=== PATIENT | male | born 1945 | race Caucasian/White ===

== ENCOUNTER → 2023-08-17 09:46 | Outpatient (REF) | payer MEDICARE, OTHER, SELFPAY | LOC: RAD 09:46 | PROVIDERS: ATTENDING PHYSICIAN Surgery Vascular Surgery; FAMILY PHYSICIAN Family Medicine | DX: I73.9 Peripheral vascular disease, unspecified (principal) | CPT/HCPCS: 93922; 93925 ==

== ENCOUNTER → 2023-08-31 08:35 | Outpatient (REF) | payer MEDICARE, OTHER, SELFPAY | LOC: RAD 08:35 | PROVIDERS: ATTENDING PHYSICIAN Internal Medicine Cardiovascular Disease | DX: I71.9 Aortic aneurysm of unspecified site, without rupture (principal); I65.29 Occlusion and stenosis of unspecified carotid artery; I65.23 Occlusion and stenosis of bilateral carotid arteries | CPT/HCPCS: 93880 ==

== ENCOUNTER → 2023-09-05 14:30 | Outpatient (REF) | payer MEDICARE, OTHER, SELFPAY | LOC: HWRAD 14:30 | PROVIDERS: ATTENDING PHYSICIAN Family Medicine | DX: G60.3 Idiopathic progressive neuropathy (principal) | CPT/HCPCS: 73620 ==

== ENCOUNTER → 2023-09-16 09:31 | Outpatient (REF) | payer MEDICARE, OTHER, SELFPAY | LOC: MRI 3T 09:31 | PROVIDERS: ATTENDING PHYSICIAN Family Medicine | DX: G60.3 Idiopathic progressive neuropathy (principal) | CPT/HCPCS: 72148 ==

== ENCOUNTER → 2024-02-29 06:42 | Day surgery (SDC) | payer MEDICARE, OTHER, SELFPAY | LOC: GI 06:42 | PROVIDERS: ATTENDING PHYSICIAN Internal Medicine Gastroenterology | DX: K22.70 Barrett's esophagus without dysplasia (principal); K44.9 Diaphragmatic hernia without obstruction or gangrene | CPT/HCPCS: 43239; 88305 ==

== ENCOUNTER → 2024-03-05 10:30 | Outpatient (REF) | payer MEDICARE, OTHER, SELFPAY | LOC: DHVS 10:30 | PROVIDERS: ATTENDING PHYSICIAN Registered Nurse; FAMILY PHYSICIAN Family Medicine | DX: I73.9 Peripheral vascular disease, unspecified (principal); I65.29 Occlusion and stenosis of unspecified carotid artery; I65.23 Occlusion and stenosis of bilateral carotid arteries | CPT/HCPCS: 93880; 93922; 93925 ==

== ENCOUNTER → 2024-04-26 10:27 | Outpatient (REF) | payer MEDICARE, OTHER, SELFPAY ==
[2024-04-26 14:12] LABS: Blood Urea Nitrogen 13 mg/dl (9-20)
== END ==
LOC: HWLAB 10:27
PROVIDERS: ATTENDING PHYSICIAN Internal Medicine Gastroenterology; FAMILY PHYSICIAN Family Medicine
DX: R10.32 Left lower quadrant pain (principal)
CPT/HCPCS: 36415; 82565; 84520

== ENCOUNTER 2024-04-28 10:04 | Inpatient (IN) | payer MEDICARE, OTHER, SELFPAY ==
[2024-04-28] VITALS (11 sets, daily range): BP systolic 107–150; BP diastolic 53–83; O2SAT 96; BMI 25.0
[2024-04-28 05:31] LABS: % Basophils 0.4 % (0-2); % Immature Granulocytes 0.8 % (0-0.5); % Lymphocytes 3.8 % (20.5-51.1); Absolute Lymphocytes 0.2 10^3/uL (1.2-3.4); Absolute Monocytes 0.3 10^3/uL (0.1-0.6); Absolute Neutrophils 4.5 10^3/uL (1.4-6.5); Hematocrit 36.5 % (39.0-52.0); Hemoglobin 13.1 g/dL (13.0-18.0); Mean Corp Hgb Conc. 35.9 g/dL (33.0-37.0); Mean Corpuscular Hgb 31.3 pg (27.0-31.0); Mean Corpuscular Volume 87.3 fL (80.0-94.0); Mean Platelet Volume 9.4 fL (7.4-10.4); Nucleated Red Blood Cells % 0 % (-); Platelet Count 119 10^3/uL (130-400); Red Blood Cell Count 4.18 10^6/uL (4.70-6.10); Red Cell Dist. Width 12.5 % (11.5-14.5)
[2024-04-28 05:44] LABS: ALT (SGPT) 47 U/L (0-50); AST (SGOT) 51 U/L (17-59); Albumin 3.6 g/dl (3.5-5.0); Alkaline Phosphatase 57 U/L (38-126); Blood Urea Nitrogen 10 mg/dl (9-20); Calcium 8.5 mg/dl (8.4-10.2); Carbon Dioxide 19 mmol/L (22-30); Chloride 99 mmol/L (98-107); Estimated Creatinine Clearance 66 ml/min; Glucose 182 mg/dl (70-99); Lipase 57 U/L (23-300); Potassium 3.7 mmol/L (3.5-5.1); Sodium 132 mmol/L (135-145); Total Bilirubin 0.6 mg/dl (0.2-1.3); Total Protein 6.2 g/dl (6.3-8.2); eGFR > 60.00
--- NOTE | 2024-04-28 06:21 | ED.GENMED ---
History of Present Illness
General
Chief Complaint: Fainting/Passed Out
Source: patient and spouse
Exam Limitations: none
Time Seen by Provider: 04/28/24 05:38
Nursing documentation reviewed up to this point in time: agreed with
History of Present Illness
History of Present Illness:
79-year-old male with a past medical history of hypertension, hyperlipidemia, prior diverticulitis who presents to the emergency room accompanied by his via EMS for evaluation of abdominal pain and fatigue. Patient reports that over the past 2
weeks he has been having a flareup of his diverticulitis; he says that he was started on antibiotics for this a week ago (ciprofloxacin and metronidazole). He says that unfortunately the metronidazole was making him ill and so he has only been
taking the ciprofloxacin and has had 6 days worth of this antibiotic. Despite this he notes that he has had continued pain he says across the lower abdomen. He has had increasing generalized fatigue and weakness. He says that this morning he was
on the toilet and was too weak to even sit up straight on the toilet and fell off of the toilet. He is not sure whether he hit his head. Triage note mention that he syncopized but patient says that he did not feel dizzy and stresses that he
did not lose consciousness. She was too weak to help a mop and called EMS to bring her to the hospital to be assessed. Aside from feeling very weak and having continued abdominal pain patient also report significant nausea. He had 1 episode of
vomiting this morning. He denies any diarrhea reports mild constipation. Denies any urinary symptoms. He denies any other complaints.
Past History
Past History
ED Past Medical History: CAD
ED Past Surgical History: Cardiac; Negative Appendectomy
Social History
Tobacco: Non-smoker
Alcohol: None
Drug: None
Personal:
Living: with family
Employment: Retired
Family History
Family History: Other
Review of Systems
Review of Systems
All Other Systems: ROS reviewed and negative except as documented in HPI and ROS
Constitutional: Reports fatigue; Denies fever or chills
EENT: Denies sore throat
Respiratory: Denies trouble breathing
Cardiac: Denies chest pain or syncope
ABD/GI: Reports abdominal pain, nausea, vomiting, constipated and anorexia; Denies diarrhea
: Denies dysuria, frequency or flank pain
Musculoskeletal: Denies neck pain or back pain
Neurological: Denies dizzy or headache
Phy Exam
Physical Exam
Physical Exam:
General: Awake, alert, oriented x3; laying in bed holding emesis bag
Head: Normocephalic, atraumatic
Eyes: Conjunctiva normal, sclera anicteric
Throat: Airway intact, handling secretions
Neck: Trachea midline, supple without meningismus
Lungs: Clear to auscultation bilaterally, no wheezing, rales, rhonchi
Heart: Regular rate and rhythm, no murmurs, gallops, or rubs
Abd: Soft, non distended, tender to palpation across the lower abdomen worst in the left lower quadrant with no peritoneal signs or masses appreciated
Neuro: No gross deficits
Skin: Minor abrasion left forearm
Extremities: Minor form abrasion but no other signs of trauma to the extremities, no tenderness in the extremities, no edema in extremities, equal pulses in all extremities
Scores
Heart Failure Risk
Heart Failure Risk Score: Not Applicable
Heart Score for Chest Pain Patients
STEMI patient?: Not applicable
Withdrawal Assessment of Alcohol
Withdrawal Assessment Completed?: Not applicable
Course
Orders/Labs/Results
Orders:
Orders
04/28/24 04:58
EKG [Electrocardiogram (*1)] Urgent
Reason for Study: Syncope
EKG- Treatment ONCE
IV Insert/Care/Rem.- Treatment PRN
04/28/24 05:05
Complete Blood Count/With Diff Urgent
Comprehensive Metabolic Panel Urgent
Lipase Urgent
04/28/24 05:41
CT Abd/pelvis W Iv Cont Urgent
Comment:
Reason For Exam: diverticulitis with worsening abd pain and tendern
CT Head W/o Iv Contrast Urgent
Comment:
Reason For Exam: syncope and collapse, headstrike
04/28/24 07:38
Urinalysis Reflex To Culture Urgent
Abnormal Lab Results
04/28/24
05:05
RBC 4.18 L 10^6/uL
(4.70-6.10)
Hct 36.5 L %
(39.0-52.0)
MCH 31.3 H pg
(27.0-31.0)
Plt Count 119 L 10^3/uL
(130-400)
Absolute Lymphs (auto) 0.2 L 10^3/uL
(1.2-3.4)
Immature Gran % 0.8 H %
(0-0.5)
Neutrophils % 90.0 H %
(42.2-75.2)
Lymphocytes % 3.8 L %
(20.5-51.1)
Sodium 132 L mmol/L
(135-145)
Carbon Dioxide 19 L mmol/L
(22-30)
Glucose 182 H mg/dl
(70-99)
Total Protein 6.2 L g/dl
(6.3-8.2)
04/28/24 05:05
04/28/24 05:05
Vital Signs
Initial and Last Documented VS:
Initial Vital Signs
Temp Pulse Resp BP Pulse Ox
36.6 C 81 28 134/67 94
04/28/24 04:58 04/28/24 04:58 04/28/24 04:58 04/28/24 04:58 04/28/24 04:58
Last Documented Vital Signs
Temp Pulse Resp BP Pulse Ox
36.6 C 76 23 111/62 93
04/28/24 04:58 04/28/24 06:33 04/28/24 06:33 04/28/24 06:33 04/28/24 06:33
MDM/Problems Addressed
Differential Diagnosis Includes:
Diverticulitis, colitis, UTI
MDM/Problems Addressed:
79-year-old male presents to the emergency room for continued lower abdominal pain and increasing generalized weakness over the past week; was diagnosed with flare of his chronic diverticulitis and started on antibiotics last week as above but has
only been taking ciprofloxacin (was prescribed Cipro plus Flagyl). Today fell off the toilet due to his severe weakness. Did not pass out, unclear if there was head trauma. Plan to place an IV check labs including a CBC and CMP. Check
urinalysis. Sent for CT head given fall and CT abdomen pelvis. Provide fluids. He received Zofran prehospital. Reassess after the above.
Labs reviewed: CBC unremarkable, CMP shows mild hyponatremia, marginal metabolic acidosis. CT abdomen pelvis shows mild wall thickening in the ascending colon which could be mild colitis. No evidence for acute diverticulitis. Urinalysis is
pending but he has not had any urinary symptoms. Can treat with some Rocephin here for colitis. He is still feeling nauseated will provide additional dose of Zofran. Provide some IV fluid infusion. Wonder if weakness could be related to poor
p.o. intake in the setting of recent abdominal pains versus deconditioning. With continued pain and nausea, dehydration will admit for continued management. Discussed with hospitalist.
Chronic conditions affecting care:
Diverticulitis
*Radiology
Radiology exam reviewed: radiology read reviewed
*Pulse Oximetry
Patient hypoxic: no
*EKG
Interpreted by ED Provider?: Yes
Heart Rate: 69
Rate: normal
Rhythm: sinus
[place]: normal axis
Interval: normal interval
QRS Pattern: right bundle branch block (Incomplete)
Ischemia: non-specific ST changes
*Critical Care Note
Total Time (30-74mins, 75-104mins- exclusive of procedures): Not Applicable
Data Reviewed
Source: patient, records and spouse
Patient Management
Discussion with other providers: Hospitalist (Discussed with hospitalist)
Escalation/DeEscalation of care consider admission/obs:
Admission indicated
ED Attending Note
-
Portions of this chart may have been created with voice recognition software.� Occasional wrong word or��sound alike� substitutions may have occurred due to the inherent limitations of voice recognition software.
Discharge Plan
Departure
Patient Disposition: Admit
Date of Disposition: 04/28/24
Time of Disposition: 07:48
Presentation/result/management discussed w/ accepting MD/DO: Hospitalist
Discharge Problem:
Pre-syncope, Generalized weakness, Abdominal pain, Nausea
Prescriptions:
No Action
trandolapril 2 MG tablet
2 mg PO DAILY
cholecalciferol (vitamin D3) [Vitamin D3] 1,000 UNIT capsule
1,000 unit PO DAILY
oxycodone-acetaminophen 5 MG/325 MG tablet
1 tab PO Q8HPRN PRN (Reason: severe pain)
Patient Comments:
06/05/23 filled on 05/24/23 #90
cilostazol 50 mg Tablet
50 mg PO BID
ibuprofen [Advil] 200 mg Tablet
200 mg PO Q6HPRN PRN (Reason: mild pain)
ezetimibe-simvastatin [Vytorin 10-40] 10-40 mg Tablet
1 tab PO HS
fexofenadine 180 mg Tablet
180 mg PO DAILY
metronidazole 0.75 % Cream
1 applic TOPICAL DAILY
omeprazole 20 mg Tablet,Delayed Release (Dr/Ec)
20 mg PO BID
omega 3-mvo-ykc-fish oil [Fish Oil] 1,000 mg (120 mg-180 mg) Capsule
1 cap PO DAILY
albuterol sulfate 90 mcg/actuation Aerosol Powdr Breath Activated
1 inh INHALATION R Q6HPRN PRN (Reason: sob)
nitroglycerin [Nitrostat] 0.4 mg Tablet, Sublingual
0.4 mg SUBLINGUAL Q5-15M PRN (Reason: chest pain)
aspirin 81 mg Tablet,Chewable
81 mg PO DAILY
Pulmicort Flexhaler 90 mcg/actuation Aerosol Powdr Breath Activated
1 inh INHALATION BID
Patient Comments:
'this is replacing my Flovent and I'll start it tomorrow'
guaifenesin [Mucinex] 600 mg Tablet Extended Release 12hr
600 mg PO Q12H PRN (Reason: congestion)
[facility] 3 billion cell Capsule
1 cap PO DAILY
Referrals:
UNKNOWN - PT NOT,INTERVIEWE [Family Provider] -
Interventions
Interventions:
*Risk Screen - Suicide Last Done: 04/28/24 04:58
*General Assessment Last Done: 04/28/24 04:58
*Neglect/Abuse Screening Last Done: 04/28/24 04:58
ED- Fall Risk Assessment Last Done: 04/28/24 05:11
*ED COVID-19 Vaccine History Last Done: 04/28/24 04:58
ED- Cardiac Assessment Last Done: 04/28/24 05:11
ED- Neurological Assessment Last Done: 04/28/24 05:11
Discharge Date and Time
Print Language: TELUGU
[2024-04-28] MEDS: FLAGYL 500 MG 100 IV ×3 (08:16→23:51)
[2024-04-28] MEDS: NSS 500 IV (08:16)
[2024-04-28] MEDS: ZOFRAN 4 MG IV ×3 (08:16→18:12)
[2024-04-28] MEDS: ROCEPHIN 1000 MG IV (08:16)
[2024-04-28 08:52] LABS: Urine Albumin Trace (Neg - Trace); Urine Bilirubin Negative (Negative); Urine Character Clear (Clear); Urine Color Yellow; Urine Glucose Negative (Negative); Urine Ketone 1+ (Negative); Urine Leukocyte Negative (Negative); Urine Nitrite Negative (Negative); Urine Occult Blood Trace (Negative); Urine Urobilinogen 1+ (Neg - 1+); Urine pH 6.5 (5.0-9.0)
[2024-04-28] MEDS: NSS (PRESERVATIVE FREE) 10 ML IV (10:08)
[2024-04-28] MEDS: COMPAZINE 10 MG IV (10:08)
[2024-04-28] MEDS: DILAUDID 0.5 MG IV ×2 (10:08→17:23)
[2024-04-28] MEDS: PROTONIX IV 40 MG IV (10:08)
[2024-04-28 10:27] LABS: Urine Amorphous Seen; Urine Red Blood Cell 0-2 /HPF (0-2); Urine White Cell 0-2 /HPF (0-5)
--- NOTE | 2024-04-28 10:31 | CM ---
CM consult for placement. Chart reviewed. CM introduced self and role. also present at bedside. Patient is here with dizziness. PT consulted. CM explained the possible recommendations PT may give, once patient is assessed. CM gave a list of
SNFs, from medicare.gov, to .
Patient is usually independent. He lives at home with his . They own a multi-level home; but have a 1st floor set up. There are 3 steps to enter into home. Roque usually drives and exercises by walking around the mall. Denied any +SDOHs. Has
an active PCP and pharmacy. Owns a walker at home. will provide transportation once Rudy is discharged.
--- NOTE | 2024-04-28 12:09 | HPS.HSE ---
Family Physician
-
Family Physician: INTERVIEWE UNKNOWN - PT NOT
Chief Complaint
-
Abdominal pain, vomiting, dizziness
History of Present Illness
79-year-old male with a past medical history of CAD status post CABG x 4 in 1999, PAD, hypertension, hyperlipidemia, asthma, interstitial lung disease, and colitis/diverticulitis presents with abdominal pain, nausea, vomiting, and dizziness.
Patient reports that he has been having left lower quadrant abdominal pain for 1-2 weeks, 6 out of 10 in intensity. He was started on ciprofloxacin and Flagyl this week, he has only been able to take the ciprofloxacin for 6 days. He has not been
able to tolerate the Flagyl. He states that today, he started having nausea and vomiting. He was on the toilet, and felt lightheaded/dizzy. He did not lose consciousness. Associated symptoms include weakness. No fever, no diarrhea, no black or
bloody stools. No chest pain, no shortness of breath.
Medical History
Past Medical History
Past Medical History: Reports Other
Additional Past Medical History:
1. Coronary artery disease status post CABG x4, 1999, outside
facility.
2. Peripheral arterial disease, bilateral SFA occlusion on
angiogram July 2022.
3. Carotid artery stenosis, bilateral, unknown degree.
4. Hypertension.
5. Hyperlipidemia.
6. Asthma, mild, persistent.
7. Interstitial lung disease with bronchiectasis.
8. Sarcoid, not active.
9. Pulmonary nodules.
10. Impaired fasting glucose.
11. Colitis/diverticulitis
12. Degenerative disk disease with osteoarthritis.
13. Gastroesophageal reflux disease/Howell's esophagus
14. History of C. diff.
Past Surgical History: Reports Cholecystectomy and Other (CABGx4, neck surgery, lower back surgery)
Social History
Tobacco: Non-smoker
Alcohol: Occasional
Drug: None
Personal:
Living: With Family
Family History
Family History: Not pertinent
Allergies / Home Medications
Allergies reflects when Allergies were last updated in [facility].
Home Medications with original date entered in [facility]
Allergy/Medication List:
Allergies
Allergy/AdvReac Type Severity Reaction Status Date / Time
Penicillins Allergy Unknown Verified 04/28/24 08:21
Home Medications Table - record
�Medication �Instructions �Recorded �Confirmed
trandolapril 2 mg tablet 2 mg PO DAILY 03/21/14 04/28/24
cholecalciferol (vitamin D3) 25 1,000 unit PO DAILY 02/22/17 04/28/24
mcg (1,000 unit) capsule (Vitamin
D3)
cilostazol 50 mg tablet 50 mg PO BID 05/29/23 04/28/24
ezetimibe 10 mg-simvastatin 40 mg 1 tab PO HS 05/29/23 04/28/24
tablet (Vytorin)
ibuprofen 200 mg tablet (Advil) 200 mg PO Q6HPRN PRN mild pain 05/29/23 04/28/24
albuterol sulfate 90 mcg/actuation 1 inh inhalation R Q6HPRN PRN sob 06/05/23 04/28/24
breath activated powder inhaler
fexofenadine 180 mg tablet 180 mg PO DAILY 06/05/23 04/28/24
omega 5-jip-yhm-fish oil 1,000 mg 1 cap PO DAILY 06/05/23 04/28/24
(120 mg-180 mg) capsule (Fish Oil)
omeprazole 20 mg tablet,delayed 20 mg PO BID 06/05/23 04/28/24
release
Lactobacillus rhamnosus-Bifidobac. 1 cap PO DAILY 07/19/23 04/28/24
animalis 3 billion cell capsule
([facility])
aspirin 81 mg chewable tablet 81 mg PO DAILY 07/19/23 04/28/24
budesonide 90 mcg/actuation breath 1 inh inhalation BID 07/19/23 04/28/24
activated powder inhaler
(Pulmicort Flexhaler)
guaifenesin 600 mg tablet, 600 mg PO Q12H PRN congestion 07/19/23 04/28/24
extended release 12 hr (Mucinex)
nitroglycerin 0.4 mg sublingual 0.4 mg sublingual Q5-15M PRN chest 07/19/23 04/28/24
tablet (Nitrostat) pain
Review of Systems
-
A 12 point ROS was completed and negative except as noted: Yes
Physical Exam
Vital Signs
Vital Signs
Temp Pulse Resp BP Pulse Ox
98 F 91 21 116/59 98
04/28/24 04:58 04/28/24 11:00 04/28/24 11:00 04/28/24 11:00 04/28/24 09:19
Physical Exam
General: No Apparent Distress
HEENT: NormoCephalic, Anicteric and Moist mucous membranes
Respiratory: Clear
Cardiac: S1/S2 and Regular Rhythm
GI: Soft, Non Distended, Normal Bowel Sounds and Tender (Tender at the left lower quadrant and suprapubic area)
Musculoskeletal: No Clubbing, No Cyanosis and No Edema
Skin: Warm
Neuro: Awake, Alert and Oriented
Psych: Calm
Laboratory Results
-
04/28/24 05:05
04/28/24 05:05
Laboratory Results
Total Bilirubin 0.6 mg/dl (0.2-1.3) 04/28/24 05:05
AST 51 U/L (17-59) 04/28/24 05:05
ALT 47 U/L (0-50) 04/28/24 05:05
Alkaline Phosphatase 57 U/L (38-126) 04/28/24 05:05
Lipase 57 U/L (23-300) 04/28/24 05:05
Impression/Plan
-
HPI: 79-year-old male with a past medical history of CAD status post CABG x 4 in 1999, PAD, hypertension, hyperlipidemia, asthma, interstitial lung disease, and colitis/diverticulitis presents with abdominal pain, nausea, vomiting, and dizziness.
Patient reports that he has been having left lower quadrant abdominal pain for 1-2 weeks, 6 out of 10 in intensity. He was started on ciprofloxacin and Flagyl this week, he has only been able to take the ciprofloxacin for 6 days. He has not been
able to tolerate the Flagyl. He states that today, he started having nausea and vomiting. He was on the toilet, and felt lightheaded/dizzy. He did not lose consciousness. Associated symptoms include weakness. No fever, no diarrhea, no black or
bloody stools. No chest pain, no shortness of breath.
#Acute colitis/diverticulitis
Patient has taken 6 days of ciprofloxacin, unable to tolerate Flagyl
CT of the abdomen and pelvis shows colonic diverticulosis, and mild wall thickening along the ascending/proximal transverse colon
Treat with IV Rocephin/Flagyl, trial of clear liquid diet
IV fluids, antiemetics as needed
Consider GI consult if no improvement
#Dizziness
Triage note stated there was syncope, collapse, head strike
Patient and states that patient fell off the toilet, unclear if patient hit his head
Patient and denies loss of consciousness
Head CT shows small hypodensity within the right globus pallidus, possibly demineralization
IV fluids, check orthostatics
#Asthma
#Interstitial lung disease with bronchiectasis
Continue bronchodilators, antihistamine
#Coronary artery disease
#History of CABG
Continue aspirin, statin
#Carotid artery stenosis
#Peripheral artery disease
Continue aspirin, cilostazol, statin
#Hyperlipidemia
Continue statin
#Hypertension
Continue ANDREINA inhibitor with hold parameters
#Hyponatremia
Monitor
#GERD
#Howell's esophagus
Continue PPI twice daily
#Chronic back pain
#Degenerative disc disease
Tylenol, oxycodone as needed
DVT prophylaxis�subcu Lovenox
Full code
Total time spent to see the patient on the floor, examine the patient, review data and lab results, discuss treatment plan with patient, nursing staff around 78 minutes.
[2024-04-28] MEDS: NSS IV (13:06)
[2024-04-28] MEDS: LR 1000 IV (14:22)
[2024-04-28] MEDS: LOVENOX 40 MG SC (17:20)
[2024-04-28] MEDS: PULMICORT 0.5 MG INH (20:13)
[2024-04-28] MEDS: DUONEB 3 ML INH (20:13)
[2024-04-28] MEDS: LIPITOR 20 MG PO (21:32)
[2024-04-28] MEDS: ZETIA 10 MG PO (21:32)
[2024-04-28] MEDS: ROXICODONE 5 MG PO (21:32)
[2024-04-28] MEDS: PLETAL 50 MG PO (21:32)
[2024-04-28] MEDS: PROTONIX 40 MG PO (21:33)
[2024-04-29] MEDS: ZOFRAN 4 MG IV (03:38)
[2024-04-29] MEDS: LR 1000 IV ×2 (03:39→21:25)
--- NOTE | 2024-04-29 06:33 | W.PN.HOSP.TC ---
Today's Communication/Plan
-
repeat CT head in AM
cont clear liquid diet
lidocaine patches lower back pain
pain control antiemetics as needed
Assessment / Plan
Assessment / Plan
Physical Exam
General: No Apparent Distress
HEENT: NormoCephalic, Anicteric and Moist mucous membranes
Respiratory: Clear
Cardiac: S1/S2 and Regular Rhythm
GI: Soft, Non Distended, Normal Bowel Sounds and Tender (Tender at the left lower quadrant and suprapubic area)
Musculoskeletal: No Clubbing, No Cyanosis and No Edema
Skin: Warm
Neuro: Awake, Alert and Oriented
Psych: Calm
HPI: 79-year-old male with a past medical history of CAD status post CABG x 4 in 1999, PAD, hypertension, hyperlipidemia, asthma, interstitial lung disease, and colitis/diverticulitis presents with abdominal pain, nausea, vomiting, and dizziness.
Patient reports that he has been having left lower quadrant abdominal pain for 1-2 weeks, 6 out of 10 in intensity. He was started on ciprofloxacin and Flagyl this week, he has only been able to take the ciprofloxacin for 6 days. He has not been
able to tolerate the Flagyl. He states that today, he started having nausea and vomiting. He was on the toilet, and felt lightheaded/dizzy. He did not lose consciousness. Associated symptoms include weakness. No fever, no diarrhea, no black or
bloody stools. No chest pain, no shortness of breath.
#Acute colitis/diverticulitis
Patient has taken 6 days of ciprofloxacin, unable to tolerate Flagyl
CT of the abdomen and pelvis shows colonic diverticulosis, and mild wall thickening along the ascending/proximal transverse colon
cont IV Rocephin/Flagyl, clear liquid diet
IV fluid support
antiemetics as needed
GI eval requested
#Dizziness resolved following IVF support
Triage note stated there was syncope, collapse, head strike
Patient and states that patient fell off the toilet, unclear if patient hit his head
Patient and denies loss of consciousness
Head CT shows small hypodensity within the right globus pallidus, possibly demineralization, repeating CT AM Tues
#Asthma
#Interstitial lung disease with bronchiectasis
Continue bronchodilators, antihistamine
#Coronary artery disease
#History of CABG
Continue aspirin, statin
#Carotid artery stenosis
#Peripheral artery disease
Continue aspirin, cilostazol, statin
#Hyperlipidemia
Continue statin
#Hypertension
Continue ANDREINA inhibitor with hold parameters
#Hyponatremia
Monitor
#GERD
#Howell's esophagus
Continue PPI twice daily
#Chronic back pain
#Degenerative disc disease
Tylenol, oxycodone as needed
2 Lidocaine patches
DVT prophylaxis�subcu Lovenox
Full code
Total time spent to see the patient on the floor, examine the patient, review data and lab results, discuss treatment plan with patient, nursing staff around 50 minutes.
Anticipated Discharge: 24 - 48 hours
Subjective/Interval History
-
Date of Service: April 29, 2024
Overall reports significant improvement in symptoms following IV hydration. Able to stand w/o lightheadedness. Reports chronic lower back pain. Tolerating clear liquid diet, nausea vomiting resolved. Beth present during evaluation
Objective Data
-
Labs:
Laboratory Results
04/29/24
06:00
WBC Pending
Hgb Pending
Hct Pending
Plt Count Pending
Sodium Pending
Potassium Pending
Chloride Pending
Carbon Dioxide Pending
BUN Pending
Creatinine Pending
Glucose Pending
Calcium Pending
Total Bilirubin Pending
AST Pending
ALT Pending
Alkaline Phosphatase Pending
Vital Signs:
Vital Signs
Temp Pulse Resp BP Pulse Ox
98.4 F 80 20 107/53 94
10/13/24 23:34 04/28/24 23:34 04/28/24 23:34 04/28/24 23:34 04/28/24 23:34
I&O
04/27/24 04/28/24 04/29/24
06:59 06:59 06:59
Intake Total 580 / 580
Output Total 350 / 350
Balance 230 / 230
[2024-04-29] MEDS: CLARITIN 10 MG PO (07:43)
[2024-04-29] MEDS: PLETAL 50 MG PO ×2 (07:43→21:26)
[2024-04-29] MEDS: PROTONIX 40 MG PO ×2 (07:43→21:26)
[2024-04-29] MEDS: FLAGYL 500 MG 100 IV ×3 (07:43→23:29)
[2024-04-29] MEDS: STERILE WATER FOR INJECTION 10 ML IV (07:43)
[2024-04-29] MEDS: LOW STRENGTH ASPIRIN 81 MG PO (07:43)
[2024-04-29] MEDS: VITAMIN D3 (cholecalciferol) 25 MCG PO (07:43)
[2024-04-29] MEDS: ROCEPHIN 1000 MG IV (07:43)
[2024-04-29 07:45] VITALS: BP 109/58
[2024-04-29] MEDS: ROXICODONE 5 MG PO ×2 (07:46→15:41)
[2024-04-29] MEDS: ZESTRIL 20 MG PO (07:47)
[2024-04-29] MEDS: PULMICORT 0.5 MG INH ×2 (07:49→19:42)
[2024-04-29 09:11] LABS: ALT (SGPT) 48 U/L (0-50); AST (SGOT) 69 U/L (17-59); Albumin 3.1 g/dl (3.5-5.0); Alkaline Phosphatase 53 U/L (38-126); Blood Urea Nitrogen 11 mg/dl (9-20); Calcium 8.1 mg/dl (8.4-10.2); Carbon Dioxide 23 mmol/L (22-30); Chloride 97 mmol/L (98-107); Estimated Creatinine Clearance 66 ml/min; Glucose 102 mg/dl (70-99); Magnesium 1.5 mg/dl (1.6-2.3); Potassium 3.4 mmol/L (3.5-5.1); Sodium 130 mmol/L (135-145); Total Bilirubin 0.5 mg/dl (0.2-1.3); Total Protein 5.5 g/dl (6.3-8.2); eGFR > 60.00
[2024-04-29 09:26] LABS: Hematocrit 34.7 % (39.0-52.0); Hemoglobin 12.2 g/dL (13.0-18.0); Mean Corp Hgb Conc. 35.2 g/dL (33.0-37.0); Mean Corpuscular Volume 88.3 fL (80.0-94.0); Mean Platelet Volume 9.8 fL (7.4-10.4); Platelet Count 110 10^3/uL (130-400); Red Blood Cell Count 3.93 10^6/uL (4.70-6.10); Red Cell Dist. Width 12.8 % (11.5-14.5); White Blood Cell Count 5.2 10^3/uL (4.8-10.8)
[2024-04-29 11:31] VITALS: BMI 25.0
[2024-04-29 15:00] VITALS: BP 113/52
[2024-04-29] MEDS: LR IV (15:46)
[2024-04-29] MEDS: LIDOCAINE 4% PATCH 2 PATCH TOPICAL (17:21)
[2024-04-29] MEDS: KCL 40 MEQ PO (17:21)
[2024-04-29] MEDS: LOVENOX 40 MG SC (17:21)
[2024-04-29] MEDS: MAGNESIUM SULFATE 50 IV (17:21)
[2024-04-29] MEDS: DUONEB 3 ML INH (19:42)
[2024-04-29] MEDS: ZETIA 10 MG PO (21:25)
[2024-04-29] MEDS: LIPITOR 20 MG PO (21:25)
[2024-04-29] MEDS: BenGay-Like 1 APPLIC TOPICAL (21:27)
[2024-04-29] MEDS: DILAUDID 0.5 MG IV (21:35)
[2024-04-29 23:16] VITALS: BP 114/59
[2024-04-30 07:08] LABS: Blood Urea Nitrogen 10 mg/dl (9-20); Carbon Dioxide 24 mmol/L (22-30); Chloride 99 mmol/L (98-107); Estimated Creatinine Clearance 75 ml/min; Glucose 110 mg/dl (70-99); Phosphorus 2.1 mg/dl (2.5-4.5); Potassium 3.8 mmol/L (3.5-5.1); Sodium 134 mmol/L (135-145); eGFR > 60.00
--- NOTE | 2024-04-30 07:39 | W.PN.HOSP.TC ---
Today's Communication/Plan
-
cont abx
PT/OT
diet as per GI
pain control
Assessment / Plan
Assessment / Plan
Physical Exam
General: No Apparent Distress
HEENT: NormoCephalic, Anicteric and Moist mucous membranes
Respiratory: Clear
Cardiac: S1/S2 and Regular Rhythm
GI: Soft, Non Distended, Normal Bowel Sounds and Tender (Tender at the left lower quadrant and suprapubic area)
Musculoskeletal: No Clubbing, No Cyanosis and No Edema
Skin: Warm
Neuro: Awake, Alert and Oriented
Psych: Calm
HPI: 79-year-old male with a past medical history of CAD status post CABG x 4 in 1999, PAD, hypertension, hyperlipidemia, asthma, interstitial lung disease, and colitis/diverticulitis presents with abdominal pain, nausea, vomiting, and dizziness.
Patient reports that he has been having left lower quadrant abdominal pain for 1-2 weeks, 6 out of 10 in intensity. He was started on ciprofloxacin and Flagyl this week, he has only been able to take the ciprofloxacin for 6 days. He has not been
able to tolerate the Flagyl. He states that today, he started having nausea and vomiting. He was on the toilet, and felt lightheaded/dizzy. He did not lose consciousness. Associated symptoms include weakness. No fever, no diarrhea, no black or
bloody stools. No chest pain, no shortness of breath.
#Acute colitis/diverticulitis
Patient has taken 6 days of ciprofloxacin, unable to tolerate Flagyl
CT of the abdomen and pelvis shows colonic diverticulosis, and mild wall thickening along the ascending/proximal transverse colon
cont IV Rocephin/Flagyl, clear liquid diet advanced to low residue
IV fluid support completed
antiemetics as needed
GI eval appreciated
#Dizziness resolved following IVF support
Triage note stated there was syncope, collapse, head strike
Patient and states that patient fell off the toilet, unclear if patient hit his head
Patient and denies loss of consciousness
Head CT shows small hypodensity within the right globus pallidus, possibly mineralization, repeat CT continues to report likely incidental finding mineralization but can not exclude possible hemorrhage (does not correlate clinically) repeat CT in 1
week recommended.
#Asthma
#Interstitial lung disease with bronchiectasis
Continue bronchodilators, antihistamine
#Coronary artery disease
#History of CABG
Continue aspirin, statin
#Carotid artery stenosis
#Peripheral artery disease
Continue aspirin, cilostazol, statin
#Hyperlipidemia
Continue statin
#Hypertension
Continue ANDREINA inhibitor with hold parameters
#Hyponatremia
Monitor
#GERD
#Howell's esophagus
Continue PPI twice daily
#Chronic back pain
#Degenerative disc disease
Tylenol, oxycodone as needed
2 Lidocaine patches
meets criteria for severe protein calorie malnutrition of acute illness with >5% weight loss over 1 month, <50% estimated needs for >5days
-diet recently advanced, encourage oral intake
DVT prophylaxis�subcu Lovenox
Full code
Total time spent to see the patient on the floor, examine the patient, review data and lab results, discuss treatment plan with patient, nursing staff around 50 minutes.
Anticipated Discharge: 24 - 48 hours
Subjective/Interval History
-
Date of Service: April 30, 2024
No acute distress. Reports feeling well. Pain controlled at this time.
Objective Data
-
Labs:
Laboratory Results
04/30/24
05:22
WBC Pending
Hgb Pending
Hct Pending
Plt Count Pending
Sodium 134 L
Potassium 3.8
Chloride 99
Carbon Dioxide 24
BUN 10
Creatinine 0.8
Glucose 110 H
Calcium 8.0 L
Vital Signs:
Vital Signs
Temp Pulse Resp BP Pulse Ox
98.1 F 77 16 114/59 95
04/29/24 23:16 04/29/24 23:16 04/29/24 23:16 04/29/24 23:16 04/29/24 23:16
I&O
04/29/24 04/30/24 05/01/24
06:59 06:59 06:59
Intake Total 580 / 580 3020 / 3020
Output Total 350 / 350 1500 / 1500
Balance 230 / 230 1520 / 1520
[2024-04-30 07:48] VITALS: BP 125/67
[2024-04-30 08:07] LABS: Hematocrit 34.7 % (39.0-52.0); Hemoglobin 12.3 g/dL (13.0-18.0); Mean Corp Hgb Conc. 35.4 g/dL (33.0-37.0); Mean Corpuscular Volume 87.4 fL (80.0-94.0); Mean Platelet Volume 10.2 fL (7.4-10.4); Platelet Count 132 10^3/uL (130-400); Red Blood Cell Count 3.97 10^6/uL (4.70-6.10); Red Cell Dist. Width 12.8 % (11.5-14.5); White Blood Cell Count 7.1 10^3/uL (4.8-10.8)
[2024-04-30] MEDS: VITAMIN D3 (cholecalciferol) 25 MCG PO (08:07)
[2024-04-30] MEDS: PLETAL 50 MG PO ×2 (08:07→20:28)
[2024-04-30] MEDS: STERILE WATER FOR INJECTION 10 ML IV (08:07)
[2024-04-30] MEDS: PROTONIX 40 MG PO ×2 (08:07→20:28)
[2024-04-30] MEDS: ROCEPHIN 1000 MG IV (08:07)
[2024-04-30] MEDS: LOW STRENGTH ASPIRIN 81 MG PO (08:07)
[2024-04-30] MEDS: ZESTRIL 20 MG PO (08:07)
[2024-04-30] MEDS: LIDOCAINE 4% PATCH 2 PATCH TOPICAL (08:08)
[2024-04-30] MEDS: FLAGYL 500 MG 100 IV ×3 (08:09→23:31)
[2024-04-30] MEDS: BenGay-Like 1 APPLIC TOPICAL ×3 (08:09→21:33)
[2024-04-30] MEDS: CLARITIN 10 MG PO (08:09)
[2024-04-30] MEDS: DUONEB 3 ML INH (08:34)
[2024-04-30] MEDS: PULMICORT 0.5 MG INH ×2 (08:35→19:14)
--- NOTE | 2024-04-30 09:49 | CON.GI ---
Consultation
-
Date/Time Consultation Requested: 04/29/24 1650
Date/Time Consultation Performed: 04/30/24 1000
Requesting Provider: Armani Milan MD
Performing Provider: AMAN Lee, Beata Anand MD
Reason for Consultation: colitis
Medical History
Chief Complaint / HPI
Chief Complaint: Pt is a 79yo with hx long segment of vargas's
History of Present Illness:
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
pain with nausea, vomiting and dizziness. He began with pain prior to admission and awaiting OP CT on 05/01. He was placed on Cipro and Flagyl but intolerant of Flagyl and developed progressive weakness with some vomiting prompting admission.
On admission 04/28 CT completed with IV contrast with diverticulosis with mild wall thickening in ascending and proximal transverse colon with concern for colitis. He was placed on Rocephin and Flagyl with marked improvement after admission. Last
colonoscopy 12/2021 with diverticulosis and hemorrhoids. EGD completed in 02/2024 with vargas's without dysplasia for 3 year follow up but noted possible sooner follow up for repeat with recent notes.
Pt currently admits to abdominal pain. Initial pain /10 now 1/10 since admission. He has one episode of vomiting bile prior to admission that has now resolved. + wt loss 5-6 lbs over last week. pt with some chronic bloating. He denies
dysphagia, GERD, diarrhea, constipation or rectal bleeding. No recent antibiotic prior to onset of pain, sick contracts or travel.
.
Past Medical History
Past Medical History: Asthma, CAD, GERD, HTN, Hypercholesterolemia and Other (long segment vargas's esophgus, cervical arthropathy, diverticulitis, diverticulosis, c-diff, benign tremor, vargas's, PVD, fatty liver, interstitial lung disease, pulm
nodule, sarcoid )
Past Surgical History: Cardiac (CABG, prior cath), Cholecystectomy, Orthopedic (back surgery, neck surgery, shoulder surgery) and Other (hernia repair, unsucessful angioplasty )
Social History
Tobacco: Non-Smoker
Alcohol: Occasional
Drug: None
Personal:
Living: With Family
Employment: Retired
Family History
Family History: Other (no family hx colon Ca or polyps)
Allergies / Home Medications
Allergy/AdvReac Type Severity Reaction Status Date / Time
Penicillins Allergy Mout sores Verified 04/29/24 13:19
1979,
Tolerates
ceftriaxone
04/2024
admission
�Medication �Instructions �Recorded
trandolapril 2 mg tablet 2 mg PO DAILY Blood Pressure 03/21/14
cholecalciferol (vitamin D3) 25 1,000 unit PO DAILY Supplement 02/22/17
mcg (1,000 unit) capsule (Vitamin
D3)
cilostazol 50 mg tablet 50 mg PO BID Blood Clot 05/29/23
Prevention/Tx
ezetimibe 10 mg-simvastatin 40 mg 1 tab PO HS High Cholesterol 05/29/23
tablet (Vytorin)
ibuprofen 200 mg tablet (Advil) 200 mg PO Q6HPRN PRN mild pain 05/29/23
albuterol sulfate 90 mcg/actuation 1 inh inhalation R Q6HPRN PRN sob 06/05/23
breath activated powder inhaler
fexofenadine 180 mg tablet 180 mg PO DAILY Allergies 06/05/23
omega 0-qse-xdv-fish oil 1,000 mg 1 cap PO DAILY Supplement 06/05/23
(120 mg-180 mg) capsule (Fish Oil)
omeprazole 20 mg tablet,delayed 20 mg PO BID Gastrointestinal Issue 06/05/23
release
Lactobacillus rhamnosus-Bifidobac. 1 cap PO DAILY probiotic 07/19/23
animalis 3 billion cell capsule
(FluGen)
aspirin 81 mg chewable tablet 81 mg PO DAILY Blood Clot 07/19/23
Prevention/Tx
budesonide 90 mcg/actuation breath 1 inh inhalation BID 07/19/23
activated powder inhaler Lung/Breathing Issues
(Pulmicort Flexhaler)
guaifenesin 600 mg tablet, 600 mg PO Q12H PRN congestion 07/19/23
extended release 12 hr (Mucinex)
nitroglycerin 0.4 mg sublingual 0.4 mg sublingual Q5-15M PRN chest 07/19/23
tablet (Nitrostat) pain
Review of Systems
-
History Source: Patient
Constitutional: Reports Weight Loss
EENT: Reports No Symptoms
Respiratory: Reports No Symptoms
Abdomen/GI: Reports Abdominal Pain, Nausea, Vomiting and Other (chronic bloating )
: Reports No Symptoms
Musculoskeletal: Reports No Symptoms
Skin: Reports No Symptoms
Neurological: Reports Dizzy
Endocrine: Reports No Symptoms
Hematologic/Lymphatic: Reports No Symptoms
Vital Signs
Temp Pulse Resp BP Pulse Ox
98.5 F 75 16 125/67 97
04/30/24 07:48 04/30/24 08:38 04/30/24 08:38 04/30/24 07:48 04/30/24 08:38
Physical Exam
Exam
General: Well Developed, Well Nourished and No Apparent Distress
HEENT: Normocephalic and Anicteric
Respiratory: Clear
Cardiac: Regular Rhythm
GI: Soft, Non Distended and Tender (mild LLQ )
Musculoskeletal: No Clubbing and No Cyanosis
Skin: Warm and Dry
Neuro: Awake, Alert and AO x 3
Psych: Calm
Results
WBC 7.1 10^3/uL (4.8-10.8) 04/30/24 05:22
Hgb 12.3 g/dL (13.0-18.0) L 04/30/24 05:22
Hct 34.7 % (39.0-52.0) L 04/30/24 05:22
MCV 87.4 fL (80.0-94.0) 04/30/24 05:22
Plt Count 132 10^3/uL (130-400) 04/30/24 05:22
Absolute Neuts (auto) 4.5 10^3/uL (1.4-6.5) 04/28/24 05:05
Sodium 134 mmol/L (135-145) L 04/30/24 05:22
Potassium 3.8 mmol/L (3.5-5.1) 04/30/24 05:22
Chloride 99 mmol/L (98-107) 04/30/24 05:22
Carbon Dioxide 24 mmol/L (22-30) 04/30/24 05:22
BUN 10 mg/dl (9-20) 04/30/24 05:22
Creatinine 0.8 mg/dL (0.7-1.3) 04/30/24 05:22
Calcium 8.0 mg/dl (8.4-10.2) L 04/30/24 05:22
Total Bilirubin 0.5 mg/dl (0.2-1.3) 04/29/24 08:01
AST 69 U/L (17-59) H 04/29/24 08:01
ALT 48 U/L (0-50) 04/29/24 08:01
Alkaline Phosphatase 53 U/L (38-126) 04/29/24 08:01
Lipase 57 U/L (23-300) 04/28/24 05:05
Diagnostic Image Results:
04/28/24 CT Abd/pelvis W Iv Cont
Colonic diverticulosis. There is mild wall thickening along the ascending and proximal transverse colon which may represent colitis.
Moderately distended urinary bladder. Mild prostatomegaly.
Small hiatal hernia.
02/2024- EGD [facility] - Esophageal mucosal changes secondary to established
long-segment Vargas's disease. WATS-3D brush biopsy
specimens obtained. Biopsied.
- 3 cm hiatal hernia.
- No gross lesions in the entire stomach.
- Normal examined duodenum.
bx intestinal metaplasia without dysplasia
12/2021- colonoscopy [facility] - The examined portion of the ileum was normal.
- Diverticulosis in the sigmoid colon, in the
descending colon and at the hepatic flexure.
- Internal hemorrhoids.
- No specimens collected.
Assessment / Plan
-
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
pain with nausea, vomiting and dizziness. He began with pain prior to admission and awaiting OP CT on 05/01. He was placed on Cipro and Flagyl but intolerant of Flagyl and developed progressive weakness with some vomiting prompting admission.
On admission 04/28 CT completed with IV contrast with diverticulosis with mild wall thickening in ascending and proximal transverse colon with concern for colitis. He was placed on Rocephin and Flagyl with marked improvement after admission. Last
colonoscopy 12/2021 with diverticulosis and hemorrhoids. EGD completed in 02/2024 with vargas's without dysplasia for 3 year follow up but noted possible sooner follow up for repeat with recent notes.
-LLQ pain CT with concern for colitis
-hyponatremia
-diverticulosis
other med problems:
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
-hx c-diff
-CAD with prior CABG
-PAD on pletal
-asthma/sarcoid/interstitial lung disease
PLAN:
etiology of symptoms related to colitis- infectious, ischemic vs other pt also noted with diverticulosis on CT on admission and some limitation of imaging without oral contrast
Pt improved from admission will advance to low residue diet as tolerating clear diet
remains with fever or leukocytosis
currently on IV Rocephin and Flagyl with hx PCN allergy -- will review oral regiment with Dr. Anand for discharge as noted nausea with Flagyl use prior to admission
I left message with CT to cancel OP study for tomorrow
I sent message to reschedule sooner office follow up with Dr. Hills or [facility]
last colonoscopy 2021
due repeat EGD [address] Hills considering sooner per office notes
updated family
-
-
Thank you for consultation and allowing me to participate in the patient's care. Please call the media relations intern GI physician during the after hours with any questions or concerns.
[2024-04-30] MEDS: MUCINEX 600 MG PO ×2 (10:32→21:40)
--- NOTE | 2024-04-30 10:51 | PN.CDI ---
CDI
- -
CDI:
Physician Documentation Request
Admit Date: 04/28/24 10:04
Dear Doctor Faiza,
Patient admitted for colitis/diverticulitis.
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
Based on the above information and your assessment, which of the following most accurately represents the patient's nutritional status?
Severe protein calorie malnutrition
Other
Independence Criteria ([facility] Hospitalist 2017)
2 or more criteria must be present for either
non severe or severe malnutrition
Note that the criteria differs related to the
presence of an acute or chronic illness
Acute Illness Chronic Illness
Energy Intake Non Severe: <75% for >7 days Non Severe: <75% for >1 month
Severe: <50% for >5 days Severe: <75% for >1 month
Weight Loss Non Severe: 1-2% over 1 week Non Severe: 5% over 1 month
5% over 1 month 7.5% over 3 months
7.5% over 3 months 10% over 6 months
1 year N/A 20% over 1 year
Severe: >2% over 1 week Severe: >5% over 1 month
>5% over 1 month >7.5% over 3 months
>7.5% over 3 months >10% over 6 months
1 year N/A >20% over 1 year
Body Fat Non Severe: Mild Decrease Non Severe: Mild Loss
Severe: Moderate Decrease Severe: Severe Loss
Muscle Mass Non Severe: Mild Decrease Non Severe: Mild Loss
Severe: Moderate Decrease Severe: Severe Loss
Fluid Accumulation Non Severe: Mild Accumulation Non Severe: Mild Accumulation
Severe: Moderate to severe Severe: Moderate to severe
accumulation accumulation
Reduced Singer Songwriter Strength Non Severe: N/A Non Severe: N/A
Severe: Measurably reduced Severe: Measurably reduced
Additional criteria that can be used to Determine if Mild or Moderate Malnutrition ([employer] Manual 2018)
Mild Moderate Severe
Albumin gm/dl <3.0 gm/dl <2.5 gm/dl <2.0 gm/dl
Pre Albumin mg/dl <15 gm/dl <10 mg/dl <5.0 mg/dl
BMI <18.5 <17 <16
Use of terms such as suspected, likely, concern for, or probable (associated with a specific diagnosis that is being evaluated, monitored, or treated as if it exists) are acceptable and can be coded in the inpatient setting, when documented at the
time of discharge.
Thank you,
Rosetta Ley RN, BSN
CDI Specialist
Available via [place] text
Please use your independent medical judgment in providing your response.
--- NOTE | 2024-04-30 12:54 | CM ---
CM reviewed pt with Dr Kendall- [facility] tomorrow
Bedside meeting with pt
PT with [facility] recs- pt in agreement
Does not feel he needs a higher level of care
Referral made to [facility] per pt request
IMM verbally reviewed withpt- copy provided
Discharge Disposition- home with [facility] (referral pending)
--- NOTE | 2024-04-30 13:11 | VNURNOTE ---
Home Health Liaison met with patient at bedside to discuss [facility] nurse/therapy, visits, schedule and homebound status. Patient is agreeable and understands that visits at home will be 2-3 x per week to assess and teach medical management. He states
his PCP is Dr Troy Oakes. [facility] brochure provided with contact information. Patient is aware that [facility] will contact them for start of care in 1-2 days after discharge from .
[facility] referral completed in [facility].
[2024-04-30 15:39] VITALS: BP 109/61; PULSE 103; O2SAT 95
[2024-04-30 16:09] VITALS: BP 109/61
--- NOTE | 2024-04-30 16:30 | W.PN.GI.CBS2 ---
Today's Communication / Plan
-
Tolerating low residue diet
To complete 7 day total course of abx
Thus far all stool studies negative and Hbg stable
GI will sign off please call for questions. He will FU with Dr Hills who is known to him
Assessment / Plan
-
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
pain with nausea, vomiting and dizziness. He began with pain prior to admission and awaiting OP CT on 05/01. He was placed on Cipro and Flagyl but intolerant of Flagyl and developed progressive weakness with some vomiting prompting admission.
On admission 04/28 CT completed with IV contrast with diverticulosis with mild wall thickening in ascending and proximal transverse colon with concern for colitis. He was placed on Rocephin and Flagyl with marked improvement after admission. Last
colonoscopy 12/2021 with diverticulosis and hemorrhoids. EGD completed in 02/2024 with vargas's without dysplasia for 3 year follow up but noted possible sooner follow up for repeat with recent notes.
Impression
-LLQ pain CT with concern for colitis
-hyponatremia
-diverticulosis
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
-hx c-diff
-CAD with prior CABG
-PAD on pletal
-asthma/sarcoid/interstitial lung disease
PLAN:
- Stool studies thus far negative
- Tolerating diet and no further abd pain
- To complete 7 day course of oral abx
- Will FU with Dr Hills OP basis.
No new recs will sign of please call for questions
Subjective
Subjective
Date of Service: April 30, 2024
He is passing soft brown BM. Hbg stable. Tolerating low residue diet. Ambulating with PT today
Objective
Data Reviewed
Laboratory Data:
Laboratory Results
04/30/24 05:22
04/30/24 05:22
Laboratory Results
Phosphorus 2.1 mg/dl (2.5-4.5) L 04/30/24 05:22
Magnesium 2.0 mg/dl (1.6-2.3) 04/30/24 05:22
Total Bilirubin 0.5 mg/dl (0.2-1.3) 04/29/24 08:01
AST 69 U/L (17-59) H 04/29/24 08:01
ALT 48 U/L (0-50) 04/29/24 08:01
Alkaline Phosphatase 53 U/L (38-126) 04/29/24 08:01
Lipase 57 U/L (23-300) 04/28/24 05:05
Vital Signs and I&O:
Vital Signs
Temp Pulse Resp BP Pulse Ox
98.5 F 103 16 109/61 95
04/30/24 07:48 04/30/24 16:09 04/30/24 16:09 04/30/24 16:09 04/30/24 16:09
I&O
04/29/24 04/30/24 05/01/24
06:59 06:59 06:59
Intake Total 580 / 580 3020 / 3020
Output Total 350 / 350 1500 / 1500
Balance 230 / 230 1520 / 1520
Physical Exam
Physical Exam
GEN: No acute distress, conversant, pleasant
HEENT: anicteric, extraocular movements intact, clear oropharynx without exudates
GI: soft, mildly-distended, not tender to palpation, normal active bowel sounds, no hepatosplenomegaly
EXT: warm, well perfused, trace edema bilaterally
NEURO: AAOx3, non-focal
[2024-04-30] MEDS: NEUTRA-PHOS POWDER PACKET 250 MG PO ×2 (17:39→21:36)
[2024-04-30] MEDS: LOVENOX 40 MG SC (17:40)
[2024-04-30] MEDS: DILAUDID 0.5 MG IV (20:32)
[2024-04-30] MEDS: LIPITOR 20 MG PO (20:33)
[2024-04-30] MEDS: ZETIA 10 MG PO (21:29)
[2024-04-30 22:35] VITALS: BP 119/59
--- NOTE | 2024-05-01 04:50 | DOWNTIME ---
There was a [employer] Systems Audit Manager Downtime on 05/01/2024 from 0100 to 05/01/2024 at 0355. Downtime documentation of patient's care, including medication administrations, has been reconciled in the electronic record per guidelines. Refer to the
patient's paper chart under the miscellaneous tab to see printed paper medication records and downtime forms.
[2024-05-01 06:15] LABS: Hematocrit 32.8 % (39.0-52.0); Hemoglobin 12.1 g/dL (13.0-18.0); Mean Corp Hgb Conc. 36.9 g/dL (33.0-37.0); Mean Corpuscular Hgb 32.4 pg (27.0-31.0); Mean Corpuscular Volume 87.7 fL (80.0-94.0); Mean Platelet Volume 9.5 fL (7.4-10.4); Platelet Count 145 10^3/uL (130-400); Red Blood Cell Count 3.74 10^6/uL (4.70-6.10); Red Cell Dist. Width 12.6 % (11.5-14.5)
[2024-05-01 06:25] LABS: Blood Urea Nitrogen 7 mg/dl (9-20); Calcium 8.2 mg/dl (8.4-10.2); Carbon Dioxide 24 mmol/L (22-30); Chloride 101 mmol/L (98-107); Estimated Creatinine Clearance 85 ml/min; Glucose 126 mg/dl (70-99); Magnesium 1.9 mg/dl (1.6-2.3); Phosphorus 2.3 mg/dl (2.5-4.5); Potassium 3.3 mmol/L (3.5-5.1); Sodium 136 mmol/L (135-145); eGFR > 60.00
--- NOTE | 2024-05-01 07:25 | W.PN.HOSP.TC ---
Today's Communication/Plan
-
abx switched to Augmentin as per ID
if tolerating well, likely discharge tomorrow.
Assessment / Plan
Assessment / Plan
Physical Exam
General: No Apparent Distress
HEENT: NormoCephalic, Anicteric and Moist mucous membranes
Respiratory: Clear
Cardiac: S1/S2 and Regular Rhythm
GI: Soft, Non Distended, Normal Bowel Sounds and Tender (Tender at the left lower quadrant and suprapubic area)
Musculoskeletal: No Clubbing, No Cyanosis and No Edema
Skin: Warm
Neuro: Awake, Alert and Oriented
Psych: Calm
HPI: 79-year-old male with a past medical history of CAD status post CABG x 4 in 1999, PAD, hypertension, hyperlipidemia, asthma, interstitial lung disease, and colitis/diverticulitis presents with abdominal pain, nausea, vomiting, and dizziness.
Patient reports that he has been having left lower quadrant abdominal pain for 1-2 weeks, 6 out of 10 in intensity. He was started on ciprofloxacin and Flagyl this week, he has only been able to take the ciprofloxacin for 6 days. He has not been
able to tolerate the Flagyl. He states that today, he started having nausea and vomiting. He was on the toilet, and felt lightheaded/dizzy. He did not lose consciousness. Associated symptoms include weakness. No fever, no diarrhea, no black or
bloody stools. No chest pain, no shortness of breath.
#Acute colitis/diverticulitis
Patient has taken 6 days of ciprofloxacin, unable to tolerate Flagyl
CT of the abdomen and pelvis shows colonic diverticulosis, and mild wall thickening along the ascending/proximal transverse colon
clear liquid diet advanced to low residue tolerating
IV fluid support completed
ID eval appreciated
IV Rocephin/Flagyl transitioned to Augmentin
antiemetics as needed
GI eval appreciated
#Dizziness resolved following IVF support
Triage note stated there was syncope, collapse, head strike
Patient and states that patient fell off the toilet, unclear if patient hit his head
Patient and denies loss of consciousness
Head CT shows small hypodensity within the right globus pallidus, possibly mineralization, repeat CT continues to report likely incidental finding mineralization but can not exclude possible hemorrhage (does not correlate clinically) repeat CT in 1
week recommended.
#Asthma
#Interstitial lung disease with bronchiectasis
Continue bronchodilators, antihistamine
#Coronary artery disease
#History of CABG
Continue aspirin, statin
#Carotid artery stenosis
#Peripheral artery disease
Continue aspirin, cilostazol, statin
#Hyperlipidemia
Continue statin
#Hypertension
Continue ANDREINA inhibitor with hold parameters
#Hyponatremia
Monitor
#GERD
#Howell's esophagus
Continue PPI twice daily
#Chronic back pain
#Degenerative disc disease
Tylenol, oxycodone as needed
2 Lidocaine patches
meets criteria for severe protein calorie malnutrition of acute illness with >5% weight loss over 1 month, <50% estimated needs for >5days
-diet recently advanced, encourage oral intake
DVT prophylaxis�subcu Lovenox
Full code
Total time spent to see the patient on the floor, examine the patient, review data and lab results, discuss treatment plan with patient, nursing staff around 50 minutes.
Anticipated Discharge: Within 24 hours
Subjective/Interval History
-
Date of Service: May 01, 2024
No acute distress. Reports feeling well. Continues to report improvement in symptoms and pain.
Objective Data
-
Labs:
Laboratory Results
05/01/24
05:30
WBC 7.0
Hgb 12.1 L
Hct 32.8 L
Plt Count 145
Sodium 136
Potassium 3.3 L
Chloride 101
Carbon Dioxide 24
BUN 7 L
Creatinine 0.7
Glucose 126 H
Calcium 8.2 L
Vital Signs:
Vital Signs
Temp Pulse Resp BP Pulse Ox
98.2 F 84 20 119/59 95
04/30/24 22:35 04/30/24 22:35 04/30/24 22:35 04/30/24 22:35 04/30/24 22:35
I&O
04/30/24 05/01/24 05/02/24
06:59 06:59 06:59
Intake Total 3020 / 3020 720 / 720 480 / 480
Output Total 1500 / 1500
Balance 1520 / 1520 720 / 720 480 / 480
[2024-05-01] MEDS: CLARITIN 10 MG PO (07:33)
[2024-05-01] MEDS: PROTONIX 40 MG PO ×2 (07:33→20:08)
[2024-05-01] MEDS: FLAGYL 500 MG 100 IV (07:33)
[2024-05-01] MEDS: VITAMIN D3 (cholecalciferol) 25 MCG PO (07:34)
[2024-05-01] MEDS: PLETAL 50 MG PO ×2 (07:34→20:07)
[2024-05-01] MEDS: NEUTRA-PHOS POWDER PACKET 250 MG PO ×2 (07:34→12:52)
[2024-05-01] MEDS: ROCEPHIN 1000 MG IV (07:34)
[2024-05-01] MEDS: STERILE WATER FOR INJECTION 10 ML IV (07:34)
[2024-05-01] MEDS: LOW STRENGTH ASPIRIN 81 MG PO (07:34)
[2024-05-01] MEDS: LIDOCAINE 4% PATCH 2 PATCH TOPICAL (07:35)
[2024-05-01] MEDS: BenGay-Like 1 APPLIC TOPICAL ×3 (07:36→21:10)
[2024-05-01] MEDS: ZESTRIL 20 MG PO (07:41)
[2024-05-01 07:43] VITALS: BP 122/74
[2024-05-01] MEDS: PULMICORT 0.5 MG INH ×2 (08:05→19:55)
[2024-05-01] MEDS: DUONEB 3 ML INH (08:05)
[2024-05-01] MEDS: POTASSIUM PHOSPHATE 259.0909 MEQ IV (12:39)
--- NOTE | 2024-05-01 14:16 | CM ---
MD entered order for discharge.
Spoke with pt in room .He said he was ready for dc.
IMM reviewed signed on chart.
Beth will drive him home.
[facility] accepted him in care port.
PLAN Home with [facility]
--- NOTE | 2024-05-01 14:49 | CON.ID ---
Consultation
-
Date/Time Consultation Requested: 05/01/24 10:52
Date/Time Consultation Performed: 05/01/24 14:50
Requesting Provider: Dr Kendall
Performing Provider: Dr Rdz
Reason for Consultation: diverticulitis failed outpt tx unable to tolerate PO Flagyll
Chief Complaint / Past History
Chief Complaint
abdominal pain, vomiting, dizziness
History of Present Illness
Mr Conteh is an 79 year old male with history of ILD, diverticulitis, C diff with who presented here for 1-2 weeks of LLQ abdomainl pain, nausea, vomiting and dizziness. He was started on ciprofloxacin and metronidazole however he has been unable
to tolerate the metronidazole and stopped it while continuing the ciprofloxacin. He is unclear if he notified the prescribing MD. Then on the day of arrival he developed nausea, vomiting. While on the toilet he felt lightheaded but did not loose
consciousness. No fevers, diarrhea or bloody stools. he asks me about useing a cephlosporin alone on the basis on his nursing family members recommendation. I explained that nurses are not able to prescribe and that was what he was already on
that failed.
Reports a short lived single mouth ulcer in the that immediately resolved. Doesnt recall retrying penicillins since then.
Since arrival here he had a single episode of hypothermia to 95.2, bp stable, wbc 5.0 on arrival now 7.0, hgb 12.1, plt 145, L shift noted on arrival, cr 0.7, t bili 0.5, ast 69, alt 48, alk phos 53, ua no pyuria, 04/30 CT head: cannot entirely
exclude hemorrhage, 04/28 Ct with contrast with mild wall thickening of the ascending and proximal transverse colon and diverticulosis. He was started on ceftriaxone and IV metronidazole which he tolerated with maked improvement in pain from 12/24
on arrival to 07/26.
Past History
Additional Past Medical History:
1. Coronary artery disease status post CABG [id number], outside
facility.
2. Peripheral arterial disease, bilateral SFA occlusion on
angiogram July 2022.
3. Carotid artery stenosis, bilateral, unknown degree.
4. Hypertension.
5. Hyperlipidemia.
6. Asthma, mild, persistent.
7. Interstitial lung disease with bronchiectasis.
8. Sarcoid, not active.
9. Pulmonary nodules.
10. Impaired fasting glucose.
11. Colitis/diverticulitis
12. Degenerative disk disease with osteoarthritis.
13. Gastroesophageal reflux disease/Howell's esophagus
14. History of C. diff.
Additional Past Surgical History:
Reports Cholecystectomy and Other (CABGx4, neck surgery, lower back surgery)
Allergy History:
Penicillins Allergy (Verified 04/29/24 13:19)
Mout sores 1979, Tolerates ceftriaxone 04/2024 admission
Medications Reviewed: Yes
Social History
Tobacco: Non-Smoker
Alcohol: None
Drug: None
Family History
Family History: Not Pertinent
Review of Systems
Review of Systems
General: Negative Fever or Chills
All systems: All other systems were reviewed and were negative
Vital Signs
Temp Pulse Resp BP Pulse Ox
97.9 F 83 18 122/74 96
05/01/24 07:43 05/01/24 08:07 05/01/24 08:07 05/01/24 07:43 05/01/24 08:07
Physical Exam
Physical Exam
Constitutional: No Acute Distress
Cardiovascular: Regular Rate and S1/S2; Negative Murmur or Rub
Pulmonary: Clear and Symmetric; Negative Wheezes, Rales or Rhonchi
Gastrointestinal: Soft, Non Tender, Non Distended and Normal Bowel Sounds
Skin: Warm and Dry; Negative Rash or Jaundice
Lab / Diagnostic Study Results
05/01/24 05:30
05/01/24 05:30
Abs Immat Gran (auto) 0.0 10^3/uL (0-0.05) 04/28/24 05:05
Absolute Neuts (auto) 4.5 10^3/uL (1.4-6.5) 04/28/24 05:05
Absolute Lymphs (auto) 0.2 10^3/uL (1.2-3.4) L 04/28/24 05:05
Absolute Monos (auto) 0.3 10^3/uL (0.1-0.6) 04/28/24 05:05
Absolute Basos (auto) 0.0 10^3/uL (0-0.2) 04/28/24 05:05
Immature Gran % 0.8 % (0-0.5) H 04/28/24 05:05
Neutrophils % 90.0 % (42.2-75.2) H 04/28/24 05:05
Lymphocytes % 3.8 % (20.5-51.1) L 04/28/24 05:05
Monocytes % 5.0 % (1.7-9.3) 04/28/24 05:05
Eosinophils % 0.0 % (0-6) 04/28/24 05:05
Basophils % 0.4 % (0-2) 04/28/24 05:05
Ur Squamous Epith Cells 3-5 /LPF (Few) 04/28/24 08:14
Microbiology Results
Micro:
04/30/24 14:28 Salmonella/Shigella Culture - Preliminary
Feces/Stool Culture in Progress
Campylobacter Culture - Preliminary
Culture in Progress
Shiga Toxin Test - Pending
Stool Leukocytes - Final
04/30/24 14:28 Cryptosporidium/Giardia - Final
Feces/Stool Negative for Cryptosporidium and/or Giardia Lamblia
antigens.
C. difficile GDH Antigen & Toxins - Final
C. difficile antigen positive, toxin negative.
Clostridium difficile present, but toxin not detected.
Patient may be a carrier, colonized with nontoxinogenic
strain or the level of toxin in sample is below detection
limits. This information should be used in conjunction with
the patient's clinical history.
Assessment / Plan
Diverticulitis
H/o C difficile
Reported allergy to penicillin - mouth sores
- day 4 of effective rx with marked improvement, agree with plan for 7 day course
- challenge with augmentin tonight - suspect he will tolerate it, sounds like he might have had a single apthous ulcer previously
- reviewed alternative of moxifloxacin (however with risk of resistance) with risk of failure, home IV (takes 24 hours plus to set up)
- if tolerates augmentin then can plan 3 more days of therapy
AW
[2024-05-01 15:31] VITALS: BP 111/57
[2024-05-01] MEDS: LOVENOX 40 MG SC (17:20)
[2024-05-01] MEDS: MUCINEX 600 MG PO (17:25)
[2024-05-01] MEDS: AUGMENTIN 875 MG/125 MG 1 TABLET PO (20:07)
[2024-05-01] MEDS: ROXICODONE 5 MG PO (20:09)
[2024-05-01] MEDS: LIPITOR 20 MG PO (21:10)
[2024-05-01] MEDS: ZETIA 10 MG PO (21:10)
[2024-05-01 23:50] VITALS: BP 123/61
[2024-05-02 05:54] LABS: Hematocrit 32.4 % (39.0-52.0); Hemoglobin 11.7 g/dL (13.0-18.0); Mean Corp Hgb Conc. 36.1 g/dL (33.0-37.0); Mean Corpuscular Volume 85.9 fL (80.0-94.0); Mean Platelet Volume 9.2 fL (7.4-10.4); Platelet Count 151 10^3/uL (130-400); Red Blood Cell Count 3.77 10^6/uL (4.70-6.10); Red Cell Dist. Width 12.9 % (11.5-14.5); White Blood Cell Count 7.3 10^3/uL (4.8-10.8)
[2024-05-02 06:13] LABS: Blood Urea Nitrogen 6 mg/dl (9-20); Calcium 8.6 mg/dl (8.4-10.2); Carbon Dioxide 25 mmol/L (22-30); Chloride 102 mmol/L (98-107); Estimated Creatinine Clearance 85 ml/min; Glucose 129 mg/dl (70-99); Magnesium 1.7 mg/dl (1.6-2.3); Phosphorus 3.8 mg/dl (2.5-4.5); Potassium 3.3 mmol/L (3.5-5.1); Sodium 137 mmol/L (135-145); eGFR > 60.00
[2024-05-02] MEDS: LIDOCAINE 4% PATCH 2 PATCH TOPICAL (07:27)
[2024-05-02] MEDS: PROTONIX 40 MG PO (07:28)
[2024-05-02] MEDS: PLETAL 50 MG PO (07:28)
[2024-05-02] MEDS: CLARITIN 10 MG PO (07:28)
[2024-05-02] MEDS: LOW STRENGTH ASPIRIN 81 MG PO (07:28)
[2024-05-02] MEDS: VITAMIN D3 (cholecalciferol) 25 MCG PO (07:28)
[2024-05-02] MEDS: AUGMENTIN 875 MG/125 MG 1 TABLET PO (07:28)
[2024-05-02] MEDS: BenGay-Like 1 APPLIC TOPICAL (07:29)
--- NOTE | 2024-05-02 07:30 | W.PN.HOSP.TC ---
Addendum entered and electronically signed by Clem Kendall MD 05/03/24 16:56:
mild hypokalemia repleted
Original Note:
Today's Communication/Plan
-
discharge
Assessment / Plan
Assessment / Plan
Physical Exam
General: No Apparent Distress
HEENT: NormoCephalic, Anicteric and Moist mucous membranes
Respiratory: Clear
Cardiac: S1/S2 and Regular Rhythm
GI: Soft, Non Distended, Normal Bowel Sounds and Tender (Tender at the left lower quadrant and suprapubic area)
Musculoskeletal: No Clubbing, No Cyanosis and No Edema
Skin: Warm
Neuro: Awake, Alert and Oriented
Psych: Calm
HPI: 79-year-old male with a past medical history of CAD status post CABG x 4 in 1999, PAD, hypertension, hyperlipidemia, asthma, interstitial lung disease, and colitis/diverticulitis presents with abdominal pain, nausea, vomiting, and dizziness.
Patient reports that he has been having left lower quadrant abdominal pain for 1-2 weeks, 6 out of 10 in intensity. He was started on ciprofloxacin and Flagyl this week, he has only been able to take the ciprofloxacin for 6 days. He has not been
able to tolerate the Flagyl. He states that today, he started having nausea and vomiting. He was on the toilet, and felt lightheaded/dizzy. He did not lose consciousness. Associated symptoms include weakness. No fever, no diarrhea, no black or
bloody stools. No chest pain, no shortness of breath.
#Acute colitis/diverticulitis
Patient has taken 6 days of ciprofloxacin, unable to tolerate Flagyl
CT of the abdomen and pelvis shows colonic diverticulosis, and mild wall thickening along the ascending/proximal transverse colon
clear liquid diet advanced to low residue tolerating
IV fluid support completed
ID eval appreciated
IV Rocephin/Flagyl transitioned to Augmentin tolerating well
antiemetics as needed
GI eval appreciated
#Dizziness resolved following IVF support
Triage note stated there was syncope, collapse, head strike
Patient and states that patient fell off the toilet, unclear if patient hit his head
Patient and denies loss of consciousness
Head CT shows small hypodensity within the right globus pallidus, possibly mineralization, repeat CT continues to report likely incidental finding mineralization but can not exclude possible hemorrhage (does not correlate clinically) repeat CT in 1
week recommended.
#Asthma
#Interstitial lung disease with bronchiectasis
Continue bronchodilators, antihistamine
#Coronary artery disease
#History of CABG
Continue aspirin, statin
#Carotid artery stenosis
#Peripheral artery disease
Continue aspirin, cilostazol, statin
#Hyperlipidemia
Continue statin
#Hypertension
Continue ANDREINA inhibitor with hold parameters
#Hyponatremia
Monitor
#GERD
#Howell's esophagus
Continue PPI twice daily
#Chronic back pain
#Degenerative disc disease
Tylenol, oxycodone as needed
2 Lidocaine patches
meets criteria for severe protein calorie malnutrition of acute illness with >5% weight loss over 1 month, <50% estimated needs for >5days
-diet recently advanced, encourage oral intake
PT/OT appreciated home health
DVT prophylaxis�subcu Lovenox
Full code
Total time spent to see the patient on the floor, examine the patient, review data and lab results, discuss treatment plan with patient, nursing staff around 40 minutes.
Anticipated Discharge: Today
Subjective/Interval History
-
Date of Service: May 02, 2024
Reports feeling well. Tolerated antibiotic overnight. LLQ abd pain significantly improved, negligible as per patient. Denies new acute issues. Eager to go home
Objective Data
-
Labs:
Laboratory Results
05/02/24
05:33
WBC 7.3
Hgb 11.7 L
Hct 32.4 L
Plt Count 151
Sodium 137
Potassium 3.3 L
Chloride 102
Carbon Dioxide 25
BUN 6 L
Creatinine 0.7
Glucose 129 H
Calcium 8.6
Vital Signs:
Vital Signs
Temp Pulse Resp BP Pulse Ox
97.8 F 80 16 123/61 96
05/01/24 23:50 05/01/24 23:50 05/01/24 23:50 05/01/24 23:50 05/01/24 23:50
I&O
05/01/24 05/02/24 05/03/24
06:59 06:59 06:59
Intake Total 720 / 720 1200 / 1200
Balance 720 / 720 1200 / 1200
[2024-05-02] MEDS: ZESTRIL PO (07:31)
[2024-05-02 07:35] VITALS: BP 118/60
[2024-05-02] MEDS: PULMICORT 0.5 MG INH (08:31)
--- NOTE | 2024-05-02 10:39 | CM ---
Patient seen at bedside. Patient confirmed to transport home, IMM completed and signed form placed on chart yesterday. Patient anticipates that [facility] will follow with him at home. CM will update [facility] liaison. CM will continue to follow for
discharge planning needs.
Plan; home with [facility] to follow
[2024-05-02] MEDS: KCL 40 MEQ PO (11:07)
[2024-05-02] MEDS: VISBIOME 1 CAP PO (11:07)
--- NOTE | 2024-05-02 11:13 | W.DCSUMMARY ---
Discharge Summary
Discharge Data
Date of Admission: 04/28/24
Date of Discharge: 05/02/24
-
Pending Results: Yes (official stool study results)
Discharge Plan
-
Patient Disposition: Home with Home Care
Discharge Diagnosis/Procedures: Acute colitis/diverticulitis
Asthma
Interstitial lung disease with bronchiectasis
Coronary artery disease
History of CABG
Carotid artery stenosis
Peripheral artery disease
Hyperlipidemia
Hypertension
Hyponatremia
GERD
Howell's esophagus
Chronic back pain
Degenerative disc disease
Condition: Fair
Diet: Low Residue
Activity: As tolerated
Driving Restrictions: As prior to admission
Bathing Restrictions: None
Blood Work: Repeat CBC and BMP in 1 week, results to be forwarded to primary care provider. Script provided to facilitate.
Others Tests: CT Head in 1 week of discharge to follow up right globus pallidus abnormality likely incidental mineralization but low suspicion possible hemorrhage. Script has been provided to facilitate. Insurance however may require
pre-authorization. In which case, follow up with primary care provider to obtain.
Other Services: PT and OT
Activity Restrictions/Additional Instructions:
Follow up with primary care provider in 1 week of discharge and GI in 4-6 weeks of discharge.
Augmentin has been prescribed for diverticulitis/colitis for 3 more days.
Lidocaine patches have been prescribed for back pain.
Please take medications as prescribed/recommended and follow up with primary care provider GI and/or other healthcare provider involved in your care for refills and/or further adjustment to your medication regimen as necessary.
Referrals:
Marcelina Hills MD [Active] - in four to six weeks (4-[address] Hills or [facility])
UNKNOWN - PT NOT,[facility] [Family Provider] -
Prescriptions:
New
lidocaine 4 % Adhesive Patch,Medicated
2 patch topical DAILY 7 Days Qty: 14 0RF
Rx Instructions:
Lower back. Do not apply to open wounds if any
amoxicillin-pot clavulanate 875-125 mg Tablet
1 tab PO Q12 3 Days Qty: 6 0RF
Continued
trandolapril 2 MG tablet
2 mg PO DAILY
cholecalciferol (vitamin D3) [Vitamin D3] 1,000 UNIT capsule
1,000 unit PO DAILY
cilostazol 50 mg Tablet
50 mg PO BID
ibuprofen [Advil] 200 mg Tablet
200 mg PO Q6HPRN PRN (Reason: mild pain)
ezetimibe-simvastatin [Vytorin 10-40] 10-40 mg Tablet
1 tab PO HS
fexofenadine 180 mg Tablet
180 mg PO DAILY
omeprazole 20 mg Tablet,Delayed Release (Dr/Ec)
20 mg PO BID
omega 2-qbi-hxo-fish oil [Fish Oil] 1,000 mg (120 mg-180 mg) Capsule
1 cap PO DAILY
albuterol sulfate 90 mcg/actuation Aerosol Powdr Breath Activated
1 inh INHALATION R Q6HPRN PRN (Reason: sob)
nitroglycerin [Nitrostat] 0.4 mg Tablet, Sublingual
0.4 mg SUBLINGUAL Q5-15M PRN (Reason: chest pain)
aspirin 81 mg Tablet,Chewable
81 mg PO DAILY
Pulmicort Flexhaler 90 mcg/actuation Aerosol Powdr Breath Activated
1 inh INHALATION BID
Patient Comments:
'this is replacing my Flovent and I'll start it tomorrow'
guaifenesin [Mucinex] 600 mg Tablet Extended Release 12hr
600 mg PO Q12H PRN (Reason: congestion)
[facility] 3 billion cell Capsule
1 cap PO DAILY
Discharge Orders:
Discharge Patient (As Directed); Ordered 05/02/24
Ordered By: Clem Kendall
Discharge Date and Time
Print Language: NIUEAN
[2024-05-02 11:39] VITALS: BP 139/73
[2024-05-02] MEDS: FLUAD (65 yr+) 2024-2025 FORMULA 0.5 ML IM (11:47)
--- NOTE | 2024-05-02 12:46 | PN.CDI ---
CDI
- -
CDI:
Physician Documentation Request
Admit Date: 04/28/24 10:04
Dear Doctor Faiza,
Patient admitted for acute colitis/diverticulitis.
Laboratory Tests
04/29/24 05/01/24 05/02/24
08:01 05:30 05:33
Potassium 3.4 L 3.3 L 3.3 L
04/29 Potassium chloride 40 meq PO administered
05/02 Potassium chloride 40 meq PO administered
Based on the above, could you clarify in the progress notes, the appropriate diagnosis, if significant, that supports the above abnormalities and additional evaluation, monitoring and/or treatment rendered:
Hypokalemia
Abnormal lab value insignificant
Other
Use of terms such as suspected, likely, concern for, or probable (associated with a specific diagnosis that is being evaluated, monitored, or treated as if it exists) are acceptable and can be coded in the inpatient setting, when documented at the
time of discharge.
Thank you,
Rosetta Ley RN, BSN
CDI Specialist
Available via [place] text
Please use your independent medical judgment in providing your response.
== END 2024-05-02 12:39 | disposition home health service (06) | DRG 391 ==
LOC: 3 WEST ACU 10:04
PROVIDERS: ADMITTING PHYSICIAN Family Medicine; ATTENDING PHYSICIAN Internal Medicine; CONSULT PHYSICIAN Student in an Organized Health Care Education/Training Program; EMERGENCY PHYSICIAN Emergency Medicine; OTHER PHYSICIAN Internal Medicine Gastroenterology
DX: K52.9 Noninfective gastroenteritis and colitis, unspecified (principal); E43 Unspecified severe protein-calorie malnutrition; K57.32 Diverticulitis of large intestine without perforation or abscess without bleeding; J84.9 Interstitial pulmonary disease, unspecified; E87.1 Hypo-osmolality and hyponatremia; J45.909 Unspecified asthma, uncomplicated; I70.209 Unspecified atherosclerosis of native arteries of extremities, unspecified extremity; E78.00 Pure hypercholesterolemia, unspecified; I10 Essential (primary) hypertension; K21.9 Gastro-esophageal reflux disease without esophagitis; J47.9 Bronchiectasis, uncomplicated; I25.10 Atherosclerotic heart disease of native coronary artery without angina pectoris; G89.29 Other chronic pain; M54.9 Dorsalgia, unspecified; K22.70 Barrett's esophagus without dysplasia; Z68.25 Body mass index [BMI] 25.0-25.9, adult; E87.6 Hypokalemia
CPT/HCPCS: 36415; 70450; 74177; 80048; 80053; 81003; 81015; 82565; 83690; 83735; 84100; 84520; 85025; 85027; 87045; 87046; 87324; 87328; 87329; 87427; 87449; 89055; 90662; 93005; 94640; 96365; 96375; 97116; 97162; 97166; 97530; 99285; G0008; Q9967

== ENCOUNTER → 2024-05-08 14:03 | Outpatient (REF) | payer MEDICARE, OTHER, SELFPAY | LOC: HWRAD 14:03 | PROVIDERS: ATTENDING PHYSICIAN Internal Medicine; FAMILY PHYSICIAN Family Medicine | DX: R55 Syncope and collapse (principal) | CPT/HCPCS: 70450 ==

== ENCOUNTER → 2024-05-09 09:33 | Outpatient (REF) | payer MEDICARE, OTHER, SELFPAY ==
[2024-05-09 12:03] LABS: % Basophils 1.3 % (0-2); % Eosinophils 1.2 % (0-6); % Immature Granulocytes 0.2 % (0-0.5); % Lymphocytes 26.7 % (20.5-51.1); % Monocytes 12.2 % (1.7-9.3); % Neutrophils 58.4 % (42.2-75.2); Absolute Basophils 0.1 10^3/uL (0-0.2); Absolute Eosinophils 0.1 10^3/uL (0-0.7); Absolute Lymphocytes 2.3 10^3/uL (1.2-3.4); Absolute Monocytes 1.1 10^3/uL (0.1-0.6); Hematocrit 41.5 % (39.0-52.0); Hemoglobin 14.4 g/dL (13.0-18.0); Mean Corp Hgb Conc. 34.7 g/dL (33.0-37.0); Mean Corpuscular Volume 92.2 fL (80.0-94.0); Mean Platelet Volume 9.4 fL (7.4-10.4); Nucleated Red Blood Cells % 0 % (-); Platelet Count 305 10^3/uL (130-400); Red Cell Dist. Width 12.9 % (11.5-14.5); White Blood Cell Count 8.6 10^3/uL (4.8-10.8)
[2024-05-09 12:16] LABS: Blood Urea Nitrogen 15 mg/dl (9-20); Calcium 9.5 mg/dl (8.4-10.2); Carbon Dioxide 25 mmol/L (22-30); Chloride 101 mmol/L (98-107); Glucose 100 mg/dl (70-99); Potassium 4.3 mmol/L (3.5-5.1); Sodium 138 mmol/L (135-145); eGFR > 60.00
== END ==
LOC: HWLAB 09:33
PROVIDERS: ATTENDING PHYSICIAN Internal Medicine; FAMILY PHYSICIAN Family Medicine
DX: K55.9 Vascular disorder of intestine, unspecified (principal); K57.30 Diverticulosis of large intestine without perforation or abscess without bleeding; I10 Essential (primary) hypertension; E87.1 Hypo-osmolality and hyponatremia
CPT/HCPCS: 36415; 80048; 85025

== ENCOUNTER → 2024-06-19 08:48 | Outpatient (REF) | payer MEDICARE, OTHER, SELFPAY | LOC: HWRAD 08:48 | PROVIDERS: ATTENDING PHYSICIAN Internal Medicine Gastroenterology; FAMILY PHYSICIAN Family Medicine | DX: R10.9 Unspecified abdominal pain (principal) | CPT/HCPCS: 74177; Q9967 ==

== ENCOUNTER → 2024-07-31 08:57 | Outpatient (REF) | payer MEDICARE, OTHER, SELFPAY | LOC: HWRAD 08:57 | PROVIDERS: ATTENDING PHYSICIAN Internal Medicine Critical Care Medicine; FAMILY PHYSICIAN Family Medicine | DX: R91.8 Other nonspecific abnormal finding of lung field (principal) | CPT/HCPCS: 71250 ==

== ENCOUNTER → 2024-08-23 09:19 | Outpatient (REF) | payer MEDICARE, OTHER, SELFPAY | LOC: HWRAD 09:19 | PROVIDERS: ATTENDING PHYSICIAN Internal Medicine Gastroenterology; FAMILY PHYSICIAN Family Medicine | DX: R10.9 Unspecified abdominal pain (principal) | CPT/HCPCS: 74018 ==

== ENCOUNTER → 2024-09-16 10:16 | Outpatient (REF) | payer MEDICARE, OTHER, SELFPAY | LOC: DHVS 10:16 | PROVIDERS: ATTENDING PHYSICIAN Surgery Vascular Surgery; FAMILY PHYSICIAN Family Medicine; OTHER PHYSICIAN Physician Assistant | DX: I65.23 Occlusion and stenosis of bilateral carotid arteries (principal); I65.29 Occlusion and stenosis of unspecified carotid artery; I73.9 Peripheral vascular disease, unspecified | CPT/HCPCS: 93880; 93922; 93925 ==

== ENCOUNTER 2024-09-20 06:27 | Day surgery (SDC) | payer MEDICARE, OTHER, SELFPAY | END 2024-09-20 12:55 | disposition home or self-care (01) | LOC: GI 06:27 | PROVIDERS: ATTENDING PHYSICIAN Internal Medicine Gastroenterology | DX: K22.70 Barrett's esophagus without dysplasia (principal); K44.9 Diaphragmatic hernia without obstruction or gangrene; K29.50 Unspecified chronic gastritis without bleeding; K20.90 Esophagitis, unspecified without bleeding | CPT/HCPCS: 43239; 88305 ==

== ENCOUNTER → 2025-03-26 08:34 | Outpatient (REF) | payer MEDICARE, OTHER, SELFPAY | LOC: RAD 08:34 | PROVIDERS: ATTENDING PHYSICIAN Surgery Vascular Surgery | DX: I73.9 Peripheral vascular disease, unspecified (principal); I65.23 Occlusion and stenosis of bilateral carotid arteries | CPT/HCPCS: 93880; 93922 ==

== ENCOUNTER → 2025-05-22 12:32 | Outpatient (REF) | payer MEDICARE, OTHER, SELFPAY | LOC: HWRAD 12:32 | DX: R06.09 Other forms of dyspnea (principal); R53.81 Other malaise; R53.83 Other fatigue | CPT/HCPCS: 71046 ==